=== PATIENT | female | born 1990 | race Native Hawaiian/Other Pacific Islander ===

== ENCOUNTER 2019-12-16 15:04 | Outpatient (CLI) | payer OTHER | END 2019-12-16 19:28 | disposition home or self-care (01) | LOC: RAD 15:04 | DX: S39.012A Strain of muscle, fascia and tendon of lower back, initial encounter (principal) ==

== ENCOUNTER 2021-12-30 09:00 | Outpatient (CLI) | payer OTHER | END 2021-12-30 21:01 | disposition home or self-care (01) | LOC: US 09:00 | PROVIDERS: ATTEND Nurse Practitioner Family | DX: R74.01 Elevation of levels of liver transaminase levels (principal) ==